=== PATIENT | male | born 1995 | race African-American/Black ===

== ENCOUNTER 2023-06-17 15:55 | Emergency (ER) | payer MEDICAID ==
[~2023-06-17] VITALS: Ht 175.3 cm; Wt 73.0 kg
[2023-06-17 16:00] VITALS: BP 122/71; PULSE 88; RESP 18; TEMP 98.2; O2SAT 99
== END 2023-06-17 16:33 | disposition left against medical advice (07) ==
LOC: ER 15:55
DX: R05.9 Cough, unspecified (principal); Z53.21 Procedure and treatment not carried out due to patient leaving prior to being seen by health care provider
CPT/HCPCS: 99281